=== PATIENT | male | born 1985 ===

== ENCOUNTER 2019-11-02 11:05 | Inpatient (IN) | payer MEDICAID, OTHER ==
[~2019-11-02] VITALS: Ht 182.9 cm; Wt 78.5 kg
[2019-11-02 12:09] LABS: BASOPHILS % (AUTO) 0.2 % (0.0-2.0); EOSINOPHILS % (AUTO) 0.6 % (1.0-6.0); HEMATOCRIT 45.9 % (41-53); HEMOGLOBIN 15.8 g/dL (13.5-17.5); LYMPHOCYTES # (AUTO) 1.3 K/uL (1.0-4.8); LYMPHOCYTES % (AUTO) 13.9 % (22.0-44.0); MEAN CORPUSCULAR HEMOGLOBIN 31.2 pg (26.0-34.0); MEAN CORPUSCULAR HGB CONC 34.4 G/dL (31.0-37.0); MEAN CORPUSCULAR VOLUME 91 fL (80-100); MONOCYTES # (AUTO) 1.1 K/uL (0.1-1.0); MONOCYTES % (AUTO) 11.6 % (2.0-9.0); NEUTROPHILS # (AUTO) 6.9 K/uL (1.8-7.7); NEUTROPHILS % (AUTO) 73.7 % (40.0-70.0); PLATELET COUNT (AUTO) 165 K/uL (150-450); RED BLOOD CELL COUNT(AUTO) 5.06 MIL/uL (4.50-5.90); RED CELL DISTRIBUTION WIDTH 13.9 % (11.5-14.5)
[2019-11-02 12:17] LABS: AMPHET/METH SCREEN,URINE POSITIVE (NEGATIVE); BARBITURATE SCREEN, URINE NEGATIVE (NEGATIVE); BENZODIAZEPINES SCREEN,URINE POSITIVE (NEGATIVE); CANNABINOID SCREEN,URINE NEGATIVE (NEGATIVE); COCAINE SCREEN,URINE NEGATIVE (NEGATIVE); METHADONE SCREEN, URINE NEGATIVE (NEGATIVE); OPIATE SCREEN,URINE NEGATIVE (NEGATIVE)
[2019-11-02 12:20] LABS: ANION GAP 9 mmol/L (8-16); CALCIUM, TOTAL 8.9 mg/dL (8.8-10.5); CARBON DIOXIDE 27 mmol/L (22-29); CHLORIDE 100 mmol/L (98-107); CREATININE 0.97 mg/dL (0.60-1.30); GLOMERULAR FILTR. RATE CALC > 60 mL/min (>60); GLUCOSE,RANDOM 121 mg/dL (70-110); POTASSIUM 3.1 mmol/L (3.5-5.1); SODIUM SERUM 136 mmol/L (136-145); UREA NITROGEN, BLOOD 36 mg/dL (7-18)
[2019-11-02 12:21] LABS: PHENCYCLIDINE SCREEN,URINE NEGATIVE (NEGATIVE)
[2019-11-02 12:25] LABS: ALANINE AMINOTRANSFERASE 30 U/L (12-78); ALBUMIN 4.5 g/dL (3.4-5.0); ALKALINE PHOSPHATASE 76 U/L (46-116); ASPARTATE AMINOTRANSFERASE 50 U/L (15-37); BILIRUBIN,TOTAL 1.5 mg/dL (0.1-1.0); TOTAL PROTEIN, SERUM 7.9 g/dL (6.4-8.2)
[2019-11-02] MEDS ORDERED: HALOPERIDOL LACTATE 5 MG/ML VIAL IM ONE ×2 (12:30→17:45)
[2019-11-02] MEDS ORDERED: HALOPERIDOL 5 MG TABLET PO PRN (13:15)
[2019-11-02] MEDS ORDERED: DiphenhydrAMINE HCL 50 MG/ML VIAL IM ONE (17:45)
[2019-11-02] MEDS ORDERED: LORazepam 2 MG/ML VIAL IM ONE (17:45)
[2019-11-02 20:22] VITALS: BP 133/81
[2019-11-03 06:00] VITALS: BP 113/78
[2019-11-03] MEDS ORDERED: POTASSIUM CHLORIDE 20 MEQ ER TABLET PO ONE (08:30)
[2019-11-03 08:38] VITALS: BP 140/56
[2019-11-03] MEDS: NICOTINE 21 MG/24 HOUR PATCH TD SCH (09:00)
[2019-11-03] MEDS: RisperiDONE 2 MG TABLET PO SCH ×2 (13:15→20:57)
[2019-11-03 17:35] VITALS: BP 103/54
[2019-11-03] MEDS: MIRTAZAPINE 15 MG TABLET PO SCH (20:57)
[2019-11-03] MEDS: LORazepam 2 MG TABLET PO PRN (20:57)
[2019-11-04 08:30] VITALS: BP 105/64
[2019-11-04] MEDS: NICOTINE 21 MG/24 HOUR PATCH TD SCH (08:44)
[2019-11-04] MEDS: RisperiDONE 2 MG TABLET PO SCH ×2 (08:44→21:09)
[2019-11-04 17:05] VITALS: BP 103/64
[2019-11-04] MEDS: MIRTAZAPINE 15 MG TABLET PO SCH (21:09)
[2019-11-05] MEDS ORDERED: IBUPROFEN 600 MG TABLET PO PRN (08:00)
[2019-11-05 08:18] VITALS: BP 107/64
[2019-11-05] MEDS: NICOTINE 21 MG/24 HOUR PATCH TD SCH (08:35)
[2019-11-05] MEDS: RisperiDONE 2 MG TABLET PO SCH ×2 (08:35→21:37)
[2019-11-05] MEDS: MIRTAZAPINE 15 MG TABLET PO SCH (21:37)
[2019-11-06 08:10] VITALS: BP 132/81
[2019-11-06] MEDS: NICOTINE 21 MG/24 HOUR PATCH TD SCH (08:30)
[2019-11-06] MEDS: RisperiDONE 2 MG TABLET PO SCH ×2 (08:30→20:58)
[2019-11-06] MEDS: DOXYCYCLINE HYCLATE 100 MG TABLET PO SCH ×2 (09:22→16:03)
[2019-11-06] MEDS: IBUPROFEN 600 MG TABLET PO SCH ×3 (09:22→16:03)
[2019-11-06] MEDS: LORazepam 2 MG TABLET PO PRN (16:03)
[2019-11-06 16:08] VITALS: BP 113/68
[2019-11-06] MEDS: MIRTAZAPINE 15 MG TABLET PO SCH (20:58)
[2019-11-06] MEDS: ZOLPIDEM TARTRATE 10 MG TABLET PO PRN (20:58)
[2019-11-07 00:23] VITALS: BP 117/71
[2019-11-07] MEDS: DOXYCYCLINE HYCLATE 100 MG TABLET PO SCH ×2 (08:19→16:29)
[2019-11-07] MEDS: IBUPROFEN 600 MG TABLET PO SCH ×3 (08:19→16:29)
[2019-11-07] MEDS: RisperiDONE 2 MG TABLET PO SCH ×2 (08:19→20:35)
[2019-11-07] MEDS: NICOTINE 21 MG/24 HOUR PATCH TD SCH (08:28)
[2019-11-07 16:12] VITALS: BP 130/63
[2019-11-07] MEDS: LORazepam 2 MG TABLET PO PRN (16:29)
[2019-11-07] MEDS: MIRTAZAPINE 15 MG TABLET PO SCH (20:35)
[2019-11-07] MEDS: ZOLPIDEM TARTRATE 10 MG TABLET PO PRN (20:35)
[2019-11-08 08:18] VITALS: BP 132/81
[2019-11-08] MEDS: NICOTINE 21 MG/24 HOUR PATCH TD SCH (08:49)
[2019-11-08] MEDS: IBUPROFEN 600 MG TABLET PO SCH ×3 (08:49→16:31)
[2019-11-08] MEDS: RisperiDONE 2 MG TABLET PO SCH ×2 (08:49→20:36)
[2019-11-08] MEDS: DOXYCYCLINE HYCLATE 100 MG TABLET PO SCH ×2 (08:49→16:30)
[2019-11-08] MEDS: LORazepam 2 MG TABLET PO PRN (16:31)
[2019-11-08 16:38] VITALS: BP 108/68
[2019-11-08] MEDS: ZOLPIDEM TARTRATE 10 MG TABLET PO PRN (20:36)
[2019-11-08] MEDS: MIRTAZAPINE 15 MG TABLET PO SCH (20:36)
[2019-11-09] MEDS: NICOTINE 21 MG/24 HOUR PATCH TD SCH (09:00)
[2019-11-09] MEDS: FOLIC ACID 1 MG TABLET PO SCH ×2 (09:00→09:17)
[2019-11-09] MEDS: THIAMINE 100 MG TABLET PO SCH ×2 (09:00→09:17)
[2019-11-09] MEDS: MULTIVITAMINS WITH MINERALS, THERAPEUTIC TABLET PO SCH ×2 (09:00→09:17)
[2019-11-09] MEDS: RisperiDONE 2 MG TABLET PO SCH ×2 (09:14→21:11)
[2019-11-09] MEDS: DOXYCYCLINE HYCLATE 100 MG TABLET PO SCH ×2 (09:16→16:53)
[2019-11-09] MEDS: IBUPROFEN 600 MG TABLET PO SCH ×3 (09:16→16:53)
[2019-11-09 16:07] VITALS: BP 112/65
[2019-11-09] MEDS: LORazepam 2 MG TABLET PO PRN (16:58)
[2019-11-09] MEDS: MIRTAZAPINE 15 MG TABLET PO SCH (21:11)
[2019-11-10 06:31] VITALS: BP 106/59
[2019-11-10] MEDS: FOLIC ACID 1 MG TABLET PO SCH (08:34)
[2019-11-10] MEDS: MULTIVITAMINS WITH MINERALS, THERAPEUTIC TABLET PO SCH (08:34)
[2019-11-10] MEDS: IBUPROFEN 600 MG TABLET PO SCH ×3 (08:34→16:45)
[2019-11-10] MEDS: DOXYCYCLINE HYCLATE 100 MG TABLET PO SCH ×2 (08:35→16:45)
[2019-11-10] MEDS: RisperiDONE 2 MG TABLET PO SCH ×2 (08:35→21:16)
[2019-11-10] MEDS: THIAMINE 100 MG TABLET PO SCH (08:35)
[2019-11-10] MEDS: NICOTINE 21 MG/24 HOUR PATCH TD SCH (09:00)
[2019-11-10 17:04] VITALS: BP 106/63
[2019-11-10] MEDS: MIRTAZAPINE 15 MG TABLET PO SCH (21:16)
[2019-11-11 01:18] VITALS: BP 125/76
[2019-11-11] MEDS: NICOTINE 21 MG/24 HOUR PATCH TD SCH (09:00)
[2019-11-11] MEDS: MULTIVITAMINS WITH MINERALS, THERAPEUTIC TABLET PO SCH (09:20)
[2019-11-11] MEDS: RisperiDONE 2 MG TABLET PO SCH ×2 (09:20→20:34)
[2019-11-11] MEDS: DOXYCYCLINE HYCLATE 100 MG TABLET PO SCH ×2 (09:20→17:00)
[2019-11-11] MEDS: FOLIC ACID 1 MG TABLET PO SCH (09:20)
[2019-11-11] MEDS: THIAMINE 100 MG TABLET PO SCH (09:21)
[2019-11-11] MEDS: IBUPROFEN 600 MG TABLET PO SCH ×3 (09:21→17:00)
[2019-11-11 16:20] VITALS: BP 129/57
[2019-11-11] MEDS: LORazepam 2 MG TABLET PO PRN (17:00)
[2019-11-11] MEDS: MIRTAZAPINE 15 MG TABLET PO SCH (20:34)
[2019-11-12 06:55] VITALS: BP 100/61
[2019-11-12 08:51] LABS: CHOL/HDL RATIO 3.8 (4.2-7.3)
[2019-11-12] MEDS: NICOTINE 21 MG/24 HOUR PATCH TD SCH (09:00)
[2019-11-12 09:26] VITALS: BP 108/70
[2019-11-12] MEDS: DOXYCYCLINE HYCLATE 100 MG TABLET PO SCH ×2 (09:40→16:50)
[2019-11-12] MEDS: FOLIC ACID 1 MG TABLET PO SCH (09:40)
[2019-11-12] MEDS: THIAMINE 100 MG TABLET PO SCH (09:40)
[2019-11-12] MEDS: MULTIVITAMINS WITH MINERALS, THERAPEUTIC TABLET PO SCH (09:40)
[2019-11-12] MEDS: RisperiDONE 2 MG TABLET PO SCH ×2 (09:41→20:27)
[2019-11-12] MEDS: IBUPROFEN 600 MG TABLET PO SCH ×3 (09:41→16:50)
[2019-11-12 16:08] VITALS: BP 125/61
[2019-11-12] MEDS: LORazepam 2 MG TABLET PO PRN (16:50)
[2019-11-12] MEDS: MIRTAZAPINE 15 MG TABLET PO SCH (20:27)
[2019-11-13 04:49] VITALS: BP 114/73
[2019-11-13] MEDS: MULTIVITAMINS WITH MINERALS, THERAPEUTIC TABLET PO SCH (08:46)
[2019-11-13] MEDS: FOLIC ACID 1 MG TABLET PO SCH (08:46)
[2019-11-13] MEDS: RisperiDONE 2 MG TABLET PO SCH (08:46)
[2019-11-13] MEDS: IBUPROFEN 600 MG TABLET PO SCH ×3 (08:46→16:13)
[2019-11-13] MEDS: NICOTINE 21 MG/24 HOUR PATCH TD SCH ×2 (08:47→09:00)
[2019-11-13] MEDS: DOXYCYCLINE HYCLATE 100 MG TABLET PO SCH ×2 (08:47→16:13)
[2019-11-13] MEDS: THIAMINE 100 MG TABLET PO SCH (08:47)
[2019-11-13] MEDS ORDERED: MIRT-89 PO (11:18)
[2019-11-13 12:25] VITALS: BP 109/52
[2019-11-13 12:28] VITALS: BP 111/73
[2019-11-13] MEDS ORDERED: RISP2 PO (12:36)
[2019-11-13] MEDS ORDERED: FOLI0.4T92 PO (12:37)
[2019-11-13] MEDS ORDERED: NICO-704 TD (12:37)
[2019-11-13] MEDS ORDERED: IBUP-2070 PO (12:39)
[2019-11-13] MEDS ORDERED: DOXY-354 PO (12:42)
[2019-11-13] MEDS: LORazepam 2 MG TABLET PO PRN (16:13)
== END 2019-11-13 16:50 | disposition home or self-care (01) | DRG 750 ==
LOC: EDBD 11:08 → EMS 11:08 → B3A 18:14
PROVIDERS: ADMIT Psychiatry & Neurology Child & Adolescent Psychiatry; ATTEND Psychiatry & Neurology Child & Adolescent Psychiatry
DX: F25.1 Schizoaffective disorder, depressive type (principal); G93.40 Encephalopathy, unspecified; R45.851 Suicidal ideations; E87.6 Hypokalemia; Z59.0 Homelessness; F15.90 Other stimulant use, unspecified, uncomplicated
CPT/HCPCS: 99291; G0480; J1200; J1630; J2060

== ENCOUNTER 2019-12-29 08:30 | Emergency (ER) | payer MEDICAID, OTHER ==
[~2019-12-29] VITALS: Ht 180.3 cm; Wt 77.3 kg
[~2019-12-29 08:30] MED LIST: DOXY-354 PO; FOLI0.4T92 PO; IBUP-2070 PO; MIRT-89 PO; NICO-704 TD; RISP2TAB23 PO
[2019-12-29 08:51] LABS: BASOPHILS % (AUTO) 0.2 % (0.0-2.0); EOSINOPHILS % (AUTO) 0 % (1.0-6.0); HEMATOCRIT 46.4 % (41-53); HEMOGLOBIN 15.7 g/dL (13.5-17.5); LYMPHOCYTES # (AUTO) 0.9 K/uL (1.0-4.8); LYMPHOCYTES % (AUTO) 5.4 % (22.0-44.0); MEAN CORPUSCULAR HEMOGLOBIN 30.8 pg (26.0-34.0); MEAN CORPUSCULAR HGB CONC 33.7 G/dL (31.0-37.0); MEAN CORPUSCULAR VOLUME 91 fL (80-100); MONOCYTES # (AUTO) 1.7 K/uL (0.1-1.0); MONOCYTES % (AUTO) 10.6 % (2.0-9.0); NEUTROPHILS # (AUTO) 13.8 K/uL (1.8-7.7); NEUTROPHILS % (AUTO) 83.8 % (40.0-70.0); PLATELET COUNT (AUTO) 194 K/uL (150-450); RED BLOOD CELL COUNT(AUTO) 5.09 MIL/uL (4.50-5.90); RED CELL DISTRIBUTION WIDTH 13.9 % (11.5-14.5)
[2019-12-29 09:02] LABS: ANION GAP 17 mmol/L (8-16); CALCIUM, TOTAL 9.1 mg/dL (8.8-10.5); CARBON DIOXIDE 22 mmol/L (22-29); CHLORIDE 104 mmol/L (98-107); CREATININE 1.21 mg/dL (0.60-1.30); GLOMERULAR FILTR. RATE CALC > 60 mL/min (>60); GLUCOSE,RANDOM 76 mg/dL (70-110); POTASSIUM 3.9 mmol/L (3.5-5.1); SODIUM SERUM 143 mmol/L (136-145); UREA NITROGEN, BLOOD 24 mg/dL (7-18)
[2019-12-29 09:08] LABS: ACETAMINOPHEN < 2 mcg/mL (10-30); ALANINE AMINOTRANSFERASE 23 U/L (12-78); ALBUMIN 4.4 g/dL (3.4-5.0); ALKALINE PHOSPHATASE 64 U/L (46-116); ASPARTATE AMINOTRANSFERASE 43 U/L (15-37); BILIRUBIN,TOTAL 0.8 mg/dL (0.1-1.0); TOTAL PROTEIN, SERUM 8.6 g/dL (6.4-8.2)
[2019-12-29 09:50] LABS: SALICYLATE 5.3 mg/dL (2.8-20.0)
[2019-12-29 11:32] VITALS: BP 117/82
== END 2019-12-29 11:47 | disposition home or self-care (01) ==
LOC: EMS 08:31
DX: Z03.818 Encounter for observation for suspected exposure to other biological agents ruled out (principal); R45.1 Restlessness and agitation; R45.851 Suicidal ideations; R41.82 Altered mental status, unspecified; F20.9 Schizophrenia, unspecified; F17.200 Nicotine dependence, unspecified, uncomplicated; F19.90 Other psychoactive substance use, unspecified, uncomplicated; Z88.0 Allergy status to penicillin; Z88.1 Allergy status to other antibiotic agents
CPT/HCPCS: 36415; 71045; 80053; 85025; 93005; 99285; G0480; U0003; G0481